=== PATIENT | male | born 1985 | race Caucasian/White ===

== ENCOUNTER 2019-12-24 13:38 | Emergency (ER) | payer OTHER ==
[2019-12-24] MEDS ORDERED: LIDOCAINE 4%/TETRACAINE 0.5%/EPI 0.18% 5 ML TOPICAL SOLN TOP ONE (14:01)
[2019-12-24] MEDS ORDERED: DIPH/PERTUSS(ACELL)/TETANUS VAC/PF 0.5 ML SYR (>=10YO) IM ONE ×2 (14:01→17:45)
--- NOTE | 2019-12-24 14:05 | ER Document Report ---
ED Medical Screen (RME) - General Stated Complaint: HAND LACERATION Time Seen by Provider: 12/24/19 13:56 TRAVEL OUTSIDE OF THE [place] IN LAST 30 DAYS: No - HPI Notes: 12/24/19 14:02 34-year-old male presents to the emergency room today after he had a crush injury to his right second and third finger while he was trying to lift the tailgate and landed on his fingers approximately an hour ago. Patient is unsure of his last tetanus shot, well over 5 years. Bleeding is under control. Reports pain is 3 out of 5, throbbing achy. No [id number] medications have been tried. Patient does not want any controlled substances for pain management. Reports numbness and tingling to his second and third right phalanges. This is a work-related injury I have greeted and performed a rapid initial assessment of this patient. A comprehensive ED assessment and evaluation of the patient, analysis of test results and completion of the medical decision making process will be conducted by additional ED providers. PHYSICAL EXAMINATION: GENERAL: Well-appearing, well-nourished and in no acute distress. CV: s1, s2 regular LUNGS: No respiratory distress Musculoskeletal: Normal range of motion NEUROLOGICAL: Normal speech, normal gait. SKIN: Warm, Dry, normal turgor, no rashes or lesions noted. R 2nd distal phalanx with a deep laceration to volar aspect, nail discoloration. cap refill < 3 seconds. able to bend at DIP. - Related Data Allergies/Adverse Reactions: No Known Allergies Allergy (Verified 01/24/16 15:46) Past Medical History - Social History Family history: Reviewed & Not Pertinent Pulmonary Medical History: Reports: Hx Asthma - as a child - no treatment as an adult GI Medical History: Reports: Hx Irritable Bowel Skin Medical History: Reports Hx MRSA Psychiatric Medical History: Reports: Hx Attention Deficit Hyperactivity Disorder, Hx Depression, Hx Obsessive Compulsive Disorder, Hx Schizophrenia - PARANOID Infectious Medical History: Reports: Hx MRSA - Immunizations Immunizations up to date: Yes Hx Diphtheria, Pertussis, Tetanus Vaccination: Yes - 2009 Physical Exam - Vital signs Vitals: Temp Pulse Resp BP Pulse Ox 98.3 F 96 16 179/77 H 99 12/24/19 13:48 12/24/19 13:48 12/24/19 13:48 12/24/19 13:48 12/24/19 13:48 Course - Vital Signs Vital signs: Temp Pulse Resp BP Pulse Ox 98.3 F 96 16 179/77 H 99 12/24/19 13:48 12/24/19 13:48 12/24/19 13:48 12/24/19 13:48 12/24/19 13:48
--- NOTE | 2019-12-24 15:00 | RADIOLOGY REPORT (SQ) ---
EXAM DESCRIPTION: HAND RIGHT 3 VIEWS IMAGES COMPLETED DATE/TIME: 12/24/2019 2:49 pm REASON FOR STUDY: crush injury with lac to R 2nd/3rd fingers COMPARISON: None. EXAM PARAMETERS: NUMBER OF VIEWS: Three views. TECHNIQUE: AP, lateral and oblique radiographic images acquired of the right hand. LIMITATIONS: None. FINDINGS: MINERALIZATION: Normal. BONES: Comminuted fractures of the tuft of the 2nd and 3rd finger. No worrisome bone lesions. JOINTS: No effusions. SOFT TISSUES: Distal soft tissue injury in the 2nd and 3rd finger. No foreign body. OTHER: No other significant finding. IMPRESSION: COMMINUTED FRACTURES OF THE TUFT OF THE 2ND AND 3RD FINGER WITH ASSOCIATED SOFT TISSUE I NJURY. TECHNICAL DOCUMENTATION: JOB ID: [id number] 2010 [employer]- All Rights Reserved Reading location - IP/workstation name: [email or web address]
[2019-12-24] MEDS ORDERED: LIDOCAINE 2% INJ (20 MG/ML) 20 ML MDV INJ ONE (17:07)
[2019-12-24] MEDS ORDERED: CEPHALEXIN 500 MG CAPSULE PO ONE (17:08)
--- NOTE | 2019-12-24 17:12 | ER Document Report ---
ED General - General Chief Complaint: Crush Injury Stated Complaint: HAND LACERATION Time Seen by Provider: 12/24/19 13:56 Notes: Patient is a 34-year-old white male with no significant past medical history who presents to the emergency department today with a chief complaint of injury to the index and middle finger of the right hand that occurred prior to arrival. He states he was working with a dump truck when he accidentally dropped a t ailgate on his 2 fingers smashing it between the tailgate and the hitch. States that the index finger is worse. Admits to some numbness and tingling in both fingers distally surrounding the wounds. Denies any uncontrollable bleeding. Unsure of his last tetanus. Denies weakness. No other pain, complaints or concerns at this time. TRAVEL OUTSIDE OF THE [place] IN LAST 30 DAYS: No - Related Data Allergies/Adverse Reactions: No Known Allergies Allergy (Verified 01/24/16 15:46) Past Medical History - Social History Smoking Status: Unknown if Ever Smoked Family History: Reviewed & Not Pertinent, CAD Pulmonary Medical History: Reports: Hx Asthma - as a child - no treatment as an adult GI Medical History: Reports: Hx Irritable Bowel Skin Medical History: Reports Hx MRSA Psychiatric Medical History: Reports: Hx Attention Deficit Hyperactivity Disorder, Hx Depression, Hx Obsessive Compulsive Disorder, Hx Schizophrenia - PARANOID Infectious Medical History: Reports: Hx MRSA - Immunizations Immunizations up to date: Yes Hx Diphtheria, Pertussis, Tetanus Vaccination: Yes - 2009 Review of Systems - Review of Systems Constitutional: denies: Fever EENT: denies: Nose pain Cardiovascular: denies: Dyspnea Respiratory: denies: Stridor Gastrointestinal: denies: Constipation Genitourinary: denies: Flank pain Male Genitourinary: denies: Testicular pain Musculoskeletal: denies: Joint swelling Skin: denies: Dryness Hematologic/Lymphatic: denies: Easy bruising Neurological/Psychological: denies: Weakness Physical Exam - Vital signs Vitals: Temp Pulse Resp BP Pulse Ox 98.3 F 96 16 179/77 H 99 12/24/19 13:48 12/24/19 13:48 12/24/19 13:48 12/24/19 13:48 12/24/19 13:48 - General General appearance: Appears well, Alert In distress: None - Respiratory Respiratory status: No respiratory distress Chest status: Nontender Breath sounds: Normal Chest palpation: Normal - Cardiovascular Rhythm: Regular Heart sounds: Normal auscultation - Extremities Hand: Other - Full passive range of motion of the digits of the right hand with and without resistance. Good capillary refill distally to the second and third digits. There is a stellate-like laceration to the index fingertip and small linear laceration to the third digit fingertip. No foreign body visualized. Hemostasis maintained. - Neurological Neuro grossly intact: Yes Cognition: Normal Orientation: AAOx4 - Psychological Associated symptoms: Normal affect, Normal mood - Skin Skin Temperature: Warm Skin Moisture: Dry Skin Color: Other - Injuries described above to the right hand Course - Re-evaluation Re-evalutation: 12/24/19 19:10 Patient tolerated wound repair and closure well. Wound was copiously irrigated and cleansed with Betadine, soaking the fingers and Betadine for 10 minutes. Wounds were tacked down and placed in a sterile gauze with Xeroform and splinted. Patient will be referred to orthopedics for open tuft fractures. He will be placed on Keflex. Given first dose here. His tetanus was updated. Counseled him regarding the importance of outpatient follow-up and advised that he return here or any ER immediately with any new, persistent or worsening symptoms. He verbalized understood and agreed. - Vital Signs Vital signs: Temp Pulse Resp BP Pulse Ox 98.3 F 96 16 179/77 H 99 12/24/19 13:48 12/24/19 13:48 12/24/19 13:48 12/24/19 13:48 12/24/19 13:48 Procedures - Laceration/Wound Repair Right Hand Time completed: 19:09 - Second and third digit Wound length (cm): 2 - Total Wound's Depth, Shape: Irregular, Stellate Laceration pre-procedure: Sterile PPE donned, Betadine prep applied, Sterile drapes applied Anesthetic type: 1% Lidocaine Volume Anesthetic (mLs): 6 - Digital block Wound explored: Contaminated Irrigated w/ Saline (mLs): 250 Wound Debrided: Minimal Wound Repaired With: Sutures Suture Size/Type: 5:0, Prolene Number of Sutures: 6 - Total between second and third Layer Closure?: No Post-procedure wound care: Sterile dressing applied, Splint applied Post-procedure NV exam normal: Yes Complications: No Discharge - Discharge Clinical Impression: Open fracture of tuft of distal phalanx of finger Condition: Stable Disposition: HOME, SELF-CARE Instructions: Open Finger Tuft Fracture ([facility]) Additional Instructions: Please call the orthopedic doctor tomorrow that you have been referred to in your paperwork to establish a follow-up appointment. Please return here or any ER immediately with any new, persistent or worsening symptoms. Please take your antibiotics as prescribed until they are completed. Your tetanus was updated today. Prescriptions: Cephalexin Monohydrate [Keflex 500 mg Capsule] 500 mg PO BID #20 capsule Referrals: NICHOLAS SHELBY DO [ACTIVE STAFF] - Follow up as needed
[2019-12-24 19:36] VITALS: BP 164/82
== END 2019-12-24 19:48 | disposition home or self-care (01) ==
LOC: ER 13:38
PROC: 0HQFXZZ Repair Right Hand Skin, External Approach (ICD-10-PCS; principal; 2019-12-24)
DX: S62.630B Displaced fracture of distal phalanx of right index finger, initial encounter for open fracture (principal); S62.632B Displaced fracture of distal phalanx of right middle finger, initial encounter for open fracture; R20.0 Anesthesia of skin; W22.8XXA Striking against or struck by other objects, initial encounter; J45.909 Unspecified asthma, uncomplicated
CPT/HCPCS: 99284; 96372; 73130; 90715; 12001; J3490